=== PATIENT | male | born 1955 | race Caucasian/White ===

== ENCOUNTER 2019-10-04 12:40 | Emergency (ER) | payer OTHER, MEDICARE, MEDICAID ==
[~2019-10-04] VITALS: Ht 182.9 cm; Wt 59.0 kg
[2019-10-04] MEDS ORDERED: BREO ELLIPTA 11 EACH (12:48)
[2019-10-04] MEDS ORDERED: IPRAT-ALBUT 0.5-3 ML (12:48)
[2019-10-04] MEDS ORDERED: ZESTRIL5 MG PO (12:48)
[2019-10-04] MEDS ORDERED: SPIRONOLACTONE25 MG PO (12:49)
[2019-10-04] MEDS ORDERED: FUROSEMIDE 40 M40 M1 PO (12:49)
[2019-10-04] MEDS ORDERED: FISH OIL 1,0001 EAC9 PO (12:50)
[2019-10-04] MEDS ORDERED: ASPIR 8181 M1 PO (12:50)
[2019-10-04] MEDS ORDERED: SUPER B-100 (12:50)
[2019-10-04] MEDS ORDERED: VENTOLIN HFA 1818 GM INH (12:50)
[2019-10-04 13:14] LABS: HEMATOCRIT 40.3 % (42.0-52.0); HEMOGLOBIN 13.9 gm/dL (14.0-18.0); MCHC 34.4 g/dL (28.0-37.0); MPV 7.5 fl. (7.2-11.1); RBC 4.48 mil/uL (4.50-6.00); RDW-CV 16.9 % (10.5-14.5); WBC 9.9 thou/uL (4.0-11.0)
[2019-10-04 13:25] LABS: CALCIUM 9.2 mg/dL (8.5-10.1); CREATININE 1.1 mg/dL (0.6-1.3); POTASSIUM 4.6 mmol/L (3.5-5.1)
[2019-10-04 13:29] LABS: ALBUMIN 4.3 g/dL (3.4-5.0); TOTAL BILIRUBIN 0.4 mg/dL (<0.1-1.0); TOTAL PROTEIN 8.1 g/dL (6.4-8.2)
[2019-10-04 13:45] VITALS: BP 120/70
--- NOTE | 2019-10-07 16:07 | EKG ---
[place] [address] ELECTROCARDIOGRAM REPORT Name: KT TROTTER Room: [facility]#: [id number] Admission: 10/04/19 Attend Phys: Discharge: 10/04/19 Date of : 51 Date of Service: 10/04/19 1256 Report #: [id number] THIS REPORT FOR: //name// [facility] ED Test Date: 2019-10-04 Test Time: 12:56:48 Pat Name: KT TROTTER Department: Room: Gender: [employer]: MARIA DE JESUS : 1955 Requested By: Jovi Ku Order Number: [id number] MD: Chucho Hill Measurements Intervals [place] Rate: 88 P: 63 WA: 134 QRS: 72 QRSD: 86 T: 61 QT: 357 QTc: 432 Interpretive Statements Sinus rhythm Ventricular premature complex No previous ECG available for comparison Electronically Signed On 10-07-2019 16:05:56 CDT by Chucho Hill [email or web address] <ELECTRONICALLY SIGNED> By: Chucho Hill MD, [facility] 10/07/19 1605 1256 1256 Chucho Hill MD, FAC /EPI
== END 2019-10-04 13:15 | disposition home or self-care (01) ==
LOC: M.ERS 12:40
PROVIDERS: Emergency Medicine Emergency Medical Services
DX: S00.31XA Abrasion of nose, initial encounter (principal); F17.210 Nicotine dependence, cigarettes, uncomplicated; V49.59XA Passenger injured in collision with other motor vehicles in traffic accident, initial encounter; Y93.89 Activity, other specified; Y92.89 Other specified places as the place of occurrence of the external cause; Y99.8 Other external cause status